=== PATIENT | female | born 1985 | race Caucasian/White ===

== ENCOUNTER 2016-12-10 19:13 | Emergency (ER) | payer OTHER ==
[~2016-12-10] VITALS: Ht 170.2 cm; Wt 142.1 kg
[~2016-12-10 19:13] MED LIST: CETIRIZINE HCL10 M2 PO; CLEOCIN300 MG PO; DICLOFENAC SODI75 MG PO; FLONASE16 G1 BOTH NARES; FLOVENT; FLOVENT 22120 INHALA IH; FUTURO RESTORI1 EACH MC; GABAPENTIN400 MG PO; GABAPENTIN600 MG PO; KEFLEX500 MG PO; LASIX20 MG PO; METHIMAZOLE5 MG PO; METOPROLOL SUCC50 MG PO; MOBIC7.5 MG PO; MOTRIN800 MG PO; NOHOMEMEDS; PERCOCET 10/1 TABLET PO; PERCOCET 5/31 TABLET PO; PREDNISONE10 MG PO; PREDNISONE20 MG PO; PREDNISONE50 MG PO; PROVENTIL; PROVENTIL,2.5 MG/3 M IH; SYMBICORT60 INHALAT IH; TRAMADOL HCL50 MG PO; TYLENOL WITH C1 EACH PO; VENTOLIN HFA18 GM IH; VITAMIN D250000 UNIT PO; ZITHROMAX Z-PA250 MG PO; ZITHROMAX250 MG PO; ZYRTEC10 M2 PO
[2016-12-10 20:19] LABS: HEMATOCRIT 41.2 % (36.0-46.0); MCH 30.7 PG (29.0-34.0); MEAN PLAT.VOLUME 10.2 uM^3 (9.5-12.4); PLATELET COUNT 313 K/uL (156-360); RBC DIS.WIDTH-CV 14.3 % (11.8-14.6); RBC DIS.WIDTH-SD 46.9 % (39-53); RED BLOOD COUNT 4.43 M/uL (3.80-5.20); WHITE BLOOD COUNT 12.6 K/uL (4.1-10.2)
[2016-12-10 20:39] LABS: D-DIMER ELISA 0.54 mg/L FEU (< 0.57)
[2016-12-10 21:02] LABS: CHLORIDE 105 mEq/L (99-109); POTASSIUM 3.5 mEq/L (3.7-5.4); SODIUM 139 mEq/L (136-147)
[2016-12-10 21:04] LABS: GLUCOSE 85 mg/dL (70-99)
[2016-12-10 21:05] LABS: ANION GAP 9 MEQ/L (2-14)
[2016-12-10 21:08] LABS: GFR ESTIMATE (CALCULATED) > 59 mL/min/
[2016-12-10 21:09] LABS: UREA NITROGEN (BUN) 7 mg/dL (9-23)
[2016-12-10 21:17] LABS: QUANTITATIVE HCG < 4.0 MIU/ML
[2016-12-10] MEDS ORDERED: ZITHROMAX250 MG PO (22:18)
[2016-12-10] MEDS ORDERED: PREDNISONE20 MG PO (22:18)
[2016-12-10] MEDS ORDERED: KEFLEX500 MG PO (22:35)
[2016-12-10 23:35] VITALS: BP 136/82
== END 2016-12-10 23:38 | disposition home or self-care (01) ==
LOC: EME 19:13
PROVIDERS: Physician Assistant
DX: J44.0 Chronic obstructive pulmonary disease with (acute) lower respiratory infection (principal); J20.9 Acute bronchitis, unspecified; L03.116 Cellulitis of left lower limb; F17.200 Nicotine dependence, unspecified, uncomplicated; I10 Essential (primary) hypertension
CPT/HCPCS: 80048; 84702; 85027; 85379; 94640; 94644; 99281; 99284; J2930; J7512

== ENCOUNTER 2017-05-11 21:03 | Emergency (ER) | payer OTHER ==
[~2017-05-11] VITALS: Ht 170.2 cm; Wt 144.1 kg
[2017-05-11 22:59] LABS: HEMATOCRIT 41.4 % (36.0-46.0); MCH 32.1 PG (29.0-34.0); MCHC 33.3 G/DL (30.0-36.0); MCV 96.3 FL (83-99); MEAN PLAT.VOLUME 10.3 uM^3 (9.5-12.4); PLATELET COUNT 292 K/uL (156-360); RBC DIS.WIDTH-CV 13.8 % (11.8-14.6); RBC DIS.WIDTH-SD 47.9 % (39-53); WHITE BLOOD COUNT 14.5 K/uL (4.1-10.2)
[2017-05-11 23:12] LABS: CHLORIDE 102 mEq/L (99-109); POTASSIUM 3.9 mEq/L (3.7-5.4); SODIUM 138 mEq/L (136-147)
[2017-05-11 23:14] LABS: GLUCOSE 79 mg/dL (70-99)
[2017-05-11 23:15] LABS: ANION GAP 11 MEQ/L (2-14)
[2017-05-11 23:18] LABS: GFR ESTIMATE (CALCULATED) > 59 mL/min/
[2017-05-11 23:19] LABS: UREA NITROGEN (BUN) 5 mg/dL (9-23)
[2017-05-11] MEDS ORDERED: MEDROL DOSEPAK4 MG PO (23:42)
[2017-05-11] MEDS ORDERED: ZITHROMAX Z-PA250 MG PO (23:42)
[2017-05-11] MEDS ORDERED: ROBITUSSIN AC,T10 ML PO (23:42)
[2017-05-12 00:19] VITALS: BP 160/92
== END 2017-05-12 00:20 | disposition home or self-care (01) ==
LOC: EME 21:03 → EXP 21:03
DX: J45.909 Unspecified asthma, uncomplicated (principal); J44.9 Chronic obstructive pulmonary disease, unspecified; I10 Essential (primary) hypertension; Z88.0 Allergy status to penicillin; Z91.040 Latex allergy status; F17.200 Nicotine dependence, unspecified, uncomplicated
CPT/HCPCS: 71020; 80048; 85027; 94640; 99281; 99284; J7512

== ENCOUNTER 2017-07-31 14:27 | Emergency (ER) | payer OTHER ==
[~2017-07-31] VITALS: Ht 170.2 cm; Wt 136.5 kg
[~2017-07-31 14:27] MED LIST changes: +MEDROL DOSEPAK4 MG PO; +ROBITUSSIN AC,T10 ML PO
[2017-07-31 15:39] LABS: HEMATOCRIT 46.8 % (36.0-46.0); MCH 31.9 PG (29.0-34.0); MCHC 32.9 G/DL (30.0-36.0); MCV 96.9 FL (83-99); MEAN PLAT.VOLUME 9.7 uM^3 (9.5-12.4); PLATELET COUNT 342 K/uL (156-360); RBC DIS.WIDTH-CV 13.4 % (11.8-14.6); RED BLOOD COUNT 4.83 M/uL (3.80-5.20); WHITE BLOOD COUNT 13.7 K/uL (4.1-10.2)
[2017-07-31 15:52] LABS: CHLORIDE 103 mEq/L (99-109); SODIUM 137 mEq/L (136-147)
[2017-07-31 15:53] LABS: GLUCOSE 144 mg/dL (70-99)
[2017-07-31 15:55] LABS: ANION GAP 9 MEQ/L (2-14)
[2017-07-31 15:57] LABS: GFR ESTIMATE (CALCULATED) > 59 mL/min/
[2017-07-31 15:58] LABS: UREA NITROGEN (BUN) 8 mg/dL (9-23)
[2017-07-31 17:01] LABS: D-DIMER ELISA < 150.00 ng/mLDDU (<230)
[2017-07-31 19:26] VITALS: BP 140/85
== END 2017-07-31 19:28 | disposition home or self-care (01) ==
LOC: EME 14:27
PROVIDERS: Physician Assistant
DX: J44.0 Chronic obstructive pulmonary disease with (acute) lower respiratory infection (principal); J20.9 Acute bronchitis, unspecified; F17.200 Nicotine dependence, unspecified, uncomplicated; R55 Syncope and collapse; S09.90XA Unspecified injury of head, initial encounter; W18.30XA Fall on same level, unspecified, initial encounter; Y92.002 Bathroom of unspecified non-institutional (private) residence as the place of occurrence of the external cause; Z71.6 Tobacco abuse counseling; I10 Essential (primary) hypertension; Z88.0 Allergy status to penicillin; Z91.040 Latex allergy status; Z88.6 Allergy status to analgesic agent
CPT/HCPCS: 70450; 71020; 80048; 85027; 85379; 87651 90; 93005; 99281; 99284; J1100